=== PATIENT | male | born 2000 | race Caucasian/White ===

== ENCOUNTER 2021-12-30 15:49 | Outpatient (CLI) | payer BC | END 2021-12-30 15:50 | disposition home or self-care (01) | LOC: LABBT 15:49 | PROVIDERS: ATTEND Specialist | DX: J35.01 Chronic tonsillitis (principal); J03.91 Acute recurrent tonsillitis, unspecified; J35.1 Hypertrophy of tonsils; R06.83 Snoring; G47.30 Sleep apnea, unspecified; Z20.822 Contact with and (suspected) exposure to COVID-19 | CPT/HCPCS: U0003; U0005 ==

== ENCOUNTER 2022-01-02 09:53 | Day surgery (SDC) | payer BC ==
[2021-12-31 12:17] VITALS: BMI 25.0
[2022-01-02] MEDS ORDERED: fentaNYL Citrate/PF 100 MCG/2 ML SYRINGE ONE (11:36)
[2022-01-02] MEDS ORDERED: Ferric Subsulfate (ASTRINGYN) 8 GM VIAL ONE (11:55)
[2022-01-02] MEDS ORDERED: Meperidine HCl/PF 25 MG/ML VIAL ONE (12:31)
[2022-01-02] MEDS ORDERED: Fentanyl 100 MCG/2 ML VIAL ONE (12:50)
[2022-01-02] MEDS ORDERED: Promethazine HCl 25 MG/ML VIAL ONE ×2 (13:45→14:02)
[2022-01-02] MEDS ORDERED: Hydrocodone-Acetamin 15 ML UDCUP ONE (14:27)
[2022-01-02] MEDS ORDERED: Ondansetron ODT 4 MG TAB ONE (16:09)
== END 2022-01-02 16:45 | disposition home or self-care (01) ==
LOC: SDC 09:53
PROVIDERS: ATTEND Specialist
PROC: 0CTPXZZ Resection of Tonsils, External Approach (ICD-10-PCS; principal; 2022-01-02)
DX: J03.91 Acute recurrent tonsillitis, unspecified (principal); J35.01 Chronic tonsillitis; J35.8 Other chronic diseases of tonsils and adenoids; Z79.899 Other long term (current) drug therapy
CPT/HCPCS: 88304; J2175; J2550; J3010; Q0162